=== PATIENT | male | born 1995 | race Caucasian/White ===

== ENCOUNTER 2020-07-01 23:00 | Emergency (ER) | payer SELFPAY ==
--- NOTE | 2020-07-01 23:30 | EDM.PDOC ---
ED HPI GENERAL MEDICAL PROBLEM - General Chief Complaint: Gastrointestinal Problem Stated Complaint: POPPED A HEMMORID/BLEEDING Time Seen by Provider: 07/01/20 23:05 Source of Information: Reports: Patient, RN History Limitations: Reports: No Limitations - History of Present Illness INITIAL COMMENTS - FREE TEXT/NARRATIVE: ED with report hemorrhoid since yesterday, tonight during bath, it popped and bleeding since. Has not tried anything. Has used preperation type product in past but none available. No fever or chills. Last BM today. Rectal Pain Score (Numeric/FACES): 3 Past Medical History Gastrointestinal History: Reports: Hemorrhoids - Past Surgical History GI Surgical History: Reports: Appendectomy Social & Family History - Tobacco Use Tobacco Use Status *Q: Current Every Day Tobacco User Years of Tobacco use: 8 Packs/Tins Daily: 0.5 Second Hand Smoke Exposure: Yes - Recreational Drug Use Recreational Drug Use: No ED ROS GENERAL - Review of Systems Review Of Systems: Comprehensive ROS is negative, except as noted in HPI. ED EXAM, RENAL/ - Physical Exam Exam: See Below Exam Limited By: No Limitations General Appearance: Alert, No Apparent Distress Eye Exam: Bilateral Eye: EOMI Throat/Mouth: Normal Inspection Head: Atraumatic Neck: Normal Inspection Respiratory/Chest: No Respiratory Distress Cardiovascular: Normal Peripheral Pulses Rectal (Males) Exam: Hemorrhoids (small external thrombosed hemorrhoid scant active bleeding. ). No: Rectal Fissure Course - Vital Signs Last Recorded V/S: Last Vital Signs Temp 99.2 F 07/01/20 23:03 Pulse 106 H 07/01/20 23:03 Resp 18 07/01/20 23:03 BP 161/84 H 07/01/20 23:03 Pulse Ox 99 07/01/20 23:03 Departure - Departure Time of Disposition: 23:24 Disposition: Home, Self-Care 01 Condition: Good Clinical Impression: Bleeding external hemorrhoids - Discharge Information *PRESCRIPTION DRUG MONITORING PROGRAM REVIEWED*: No *COPY OF PRESCRIPTION DRUG MONITORING REPORT IN PATIENT LOUISA: No Instructions: Hemorrhoids, [id number] Forms: ED Department Discharge Additional Instructions: sitz bath 3 times daily avoid sitting prolonged periods preperation H type porduct cool pack to rectal area for comfort colace stool softener Increase fluids fruit and fiber in diet clinic follow up Sepsis Event Note (ED) - Evaluation Sepsis Screening Result: No Definite Risk - Focused Exam Vital Signs: Vital Signs Temp Pulse Resp BP Pulse Ox 07/01/20 23:03 99.2 F 106 H 18 161/84 H 99
== END 2020-07-01 23:31 | disposition home or self-care (01) ==
LOC: DL.ED 23:00
DX: K64.4 Residual hemorrhoidal skin tags (principal); F17.210 Nicotine dependence, cigarettes, uncomplicated
CPT/HCPCS: 99282